=== PATIENT | female | born 1960 | race Caucasian/White ===

== ENCOUNTER 2019-04-25 14:50 | Emergency (ER) | payer SELFPAY ==
[~2019-04-25] VITALS: Ht 152.4 cm; Wt 52.2 kg
[~2019-04-25 14:50] MED LIST: ACET-8386 PO; ALPR0.5T2 PO; DOCU-299 PO; PHE25I PO; PHE25S RC; ZOLP5TAB1 PO
[2019-04-25 15:02] VITALS: BP 135/73
--- NOTE | 2019-04-25 15:07 | NUR ---
BIBA for flu-like symptoms x1 week. Per pt she was sitting on the toilet when she felt cramping of bilateral hands and feet. On scene pt was seen hyperventilating. Pt A&Ox4. Respirations even and unlabored. Pt has cough, chills and nasal congestion. Cough is productive; yellow sputum. Pt took Nightquil at 11am. Pt denies any pain. Pain level 0/10. Pt reports tingling sensation to hands and lips. Allergies: norco Med hx: seizures
--- NOTE | 2019-04-25 15:24 | NUR ---
Pt awake and alert. Family at bedside. Pt given extra blanket for comfort.
[2019-04-25 16:34] VITALS: BP 135/73
--- NOTE | 2019-04-25 16:34 | NUR ---
Patient discharged by Dr. Moeller with v/s stable. Written and verbal after care instructions given and explained. Patient verbalized understanding. Ambulatory with steady gait. All questions addressed prior to discharge. Advised to follow up with PMD.
== END 2019-04-25 16:34 | disposition home or self-care (01) ==
LOC: MED 14:50
DX: F41.9 Anxiety disorder, unspecified (principal); R06.4 Hyperventilation; R19.7 Diarrhea, unspecified; R20.0 Anesthesia of skin
CPT/HCPCS: 99281

== ENCOUNTER 2021-04-20 13:52 | Emergency (ER) | payer MEDICAID ==
[~2021-04-20] VITALS: Ht 152.4 cm; Wt 58.1 kg
--- NOTE | 2021-04-20 13:55 | NUR ---
PT BIBA TO BED 13. Addendum: 04/20/21 at 1406 by [facility] BED 14
[2021-04-20 14:02] VITALS: BP 116/68
--- NOTE | 2021-04-20 14:21 | NUR ---
PT AMBULATED TO RESTROOM FOR UA COLLECTION, STEADY GAIT.
[2021-04-20] MEDS ORDERED: NACL 0.9% 1,000 ML IV ONE (14:55)
[2021-04-20 15:38] LABS: BASOPHILS # (AUTO) 0.1 K/uL (0.00-0.22); BASOPHILS % (AUTO) 0.8 % (0.0-2.0); EOSINOPHILS % (AUTO) 0.4 % (0.0-4.0); HEMATOCRIT 38.6 % (36-48); HEMOGLOBIN 13.3 g/dL (12.0-16.0); LYMPHOCYTES # (AUTO) 1.5 K/uL (2.5-16.5); LYMPHOCYTES % (AUTO) 25.1 % (20.5-51.1); MEAN CORPUSCULAR HEMOGLOBIN 31 pg (27-31); MEAN CORPUSCULAR HGB CONC 34 g/dL (33-37); MEAN CORPUSCULAR VOLUME 90.5 fL (80-94); MONOCYTES # (AUTO) 0.5 K/uL (0.8-1.0); MONOCYTES % (AUTO) 7.8 % (1.7-9.3); NEUTROPHILS # (AUTO) 4.1 K/uL (1.8-7.7); NEUTROPHILS % (AUTO) 65.9 % (42.2-75.2); PLATELET COUNT (AUTO) 251 K/uL (140-450); RED BLOOD CELL COUNT(AUTO) 4.27 MIL/uL (4.20-5.40); RED CELL DISTRIBUTION WIDTH 14.2 % (11.6-13.7); WHITE BLOOD COUNT (AUTO) 6.2 K/uL (4.8-10.8)
[2021-04-20 15:40] LABS: APPEARANCE,URINE CLEAR (CLEAR); BILIRUBIN,URINE NEGATIVE (NEGATIVE); BLOOD, URINE NEGATIVE (NEGATIVE); COLOR,URINE YELLOW (YELLOW); LEUKOCYTE ESTERASE ,URINE NEGATIVE (NEGATIVE); NITRITE, URINE POSITIVE (NEGATIVE); UGLUCOSE NEGATIVE (NEGATIVE)
[2021-04-20 15:54] LABS: ANION GAP 13.8 (8-16); CARBON DIOXIDE 26.2 mmol/L (21-32); CREATININE 0.6 mg/dL (0.6-1.3)
--- NOTE | 2021-04-20 16:29 | NUR ---
PT NEPHRADHA BEGUM [phone]
[2021-04-20 16:42] VITALS: BP 132/69
--- NOTE | 2021-04-20 17:59 | NUR ---
Patient discharged with v/s stable. Written and verbal after care instructions given FOR VIRALL ILLNESSand explained. Patient alert, oriented and verbalized understanding of instructions. Ambulatory with steady gait. All questions addressed prior to discharge. ID band removed. Patient advised to follow up with PMD. Rx of IBUPROFEN given. Patient educated on indication of medication including possible reaction and side effects. Opportunity to ask questions provided and answered.
== END 2021-04-20 17:36 | disposition home or self-care (01) ==
LOC: MED 13:52
DX: R56.9 Unspecified convulsions (principal); Z79.899 Other long term (current) drug therapy; Z79.891 Long term (current) use of opiate analgesic
CPT/HCPCS: 36415; 71045; 80048; 81003; 85025; 93005; 96360; 99285; J7030